=== PATIENT | female | born 1980 | race Caucasian/White ===

== ENCOUNTER 2019-07-11 07:20 | Emergency (ER) | payer BC ==
[2019-07-11 07:29] VITALS: BP 129/82
--- NOTE | 2019-07-11 07:44 | UC ---
Throat Pain/Nasal Erasto HPI - HPI Summary HPI Summary: 39-year-old woman comes in with a chief complaint of bilateral eye redness irritation and drainage. About 5 days ago she started with a severe sore throat and it spread to some rhinorrhea and chest congestion. Overnight she started with bilateral eye irritation and this morning had drainage. Using was compresses she was able to clean her eyes which improved. Still having eye drainage. Sore throat has improved but still hurts some to swallow. Minimal rhinorrhea minimal sputum has not seen any of either. No complaint of any shortness of breath. Has felt some pressure in the right ear. - History of Current Complaint Chief Complaint: UCEye Stated Complaint: BILATERAL EYE IRRITATION Time Seen by Provider: 07/11/19 07:31 Hx Last Menstrual Period: UID Pain Intensity: 4 - Allergies/Home Medications Allergies/Adverse Reactions: Allergies Allergy/AdvReac Type Severity Reaction Status Date / Time CATS Allergy SNEEZING,ITCHY Uncoded 07/11/19 07:29 EYES PMH/Surg Hx/FS Hx/Imm Hx Previously Healthy: Yes - Surgical History Surgical History: Yes Surgery Procedure, Year, and Place: APPENDECTOMY AGE 9,. 2010 DILATION AND CURETTAGE FOR MISSED AB, [facility]. 05/2013 RT LEG VEINS [facility] - Family History Known Family History: Positive: Non-Contributory - Social History Alcohol Use: Rare Alcohol Amount: 2-3 DRINKS/MONTH Substance Use Type: None Smoking Status (MU): Never Smoked Tobacco Have You Smoked in the Last Year: No Review of Systems All Other Systems Reviewed And Are Negative: Yes Constitutional: Positive: Other - see hpi Skin: Positive: Negative Eyes: Positive: Drainage, Eye Redness, Other - see hpi ENT: Positive: Sore Throat, Ear Ache, Nasal Discharge, Sinus Congestion Respiratory: Positive: Cough Cardiovascular: Positive: Negative Gastrointestinal: Positive: Negative Motor: Positive: Negative Neurovascular: Positive: Negative Musculoskeletal: Positive: Negative Neurological: Positive: Negative Psychological: Positive: Negative Is Patient Immunocompromised?: No Physical Exam Triage Information Reviewed: Yes Appearance: No Pain Distress, Well-Nourished, Ill-Appearing - mild Vital Signs: Initial Vital Signs Temp 98.3 F 07/11/19 07:27 Pulse 98 07/11/19 07:27 Resp 18 07/11/19 07:27 BP 129/82 07/11/19 07:27 Pulse Ox 100 07/11/19 07:27 Vital Signs Reviewed: Yes Eyes: Positive: Conjunctiva Inflamed - b/l, Discharge - b/l ENT: Positive: Pharyngeal erythema, Nasal congestion, TMs normal Neck: Positive: Supple Respiratory: Positive: Lungs clear, Normal breath sounds, No respiratory distress Cardiovascular: Positive: RRR Musculoskeletal: Positive: Strength Intact, ROM Intact Neurological: Positive: Alert, Muscle Tone Normal Psychological: Positive: Age Appropriate Behavior Skin Exam: Normal Throat Pain/Nasal Course/Dx - Differential Dx/Diagnosis Provider Diagnosis: Conjunctivitis, Upper respiratory infection Discharge ED - Sign-Out/Discharge Documenting (check all that apply): Patient Departure All imaging exams completed and their final reports reviewed: No Studies - Discharge Plan Condition: Stable Disposition: HOME Prescriptions: Tobramycin 0.3% OPHTH.SEVERINO* 1 drop BOTH EYES Q4H #1 btl Patient Education Materials: Conjunctivitis (ED), Upper Respiratory Infection ( ED) Referrals: Beatriz Johnson NP [Primary Care Provider] - Additional Instructions: FOLLOW UP WITH YOUR DOCTOR IF NOT COMPLETELY IMPROVED. GET REEVALUATED SOONER IF NOT IMPROVING OR WORSE OR ANY QUESTIONS OR CONCERNS. - Billing Disposition and Condition Condition: STABLE Disposition: Home
== END 2019-07-11 07:57 | disposition home or self-care (01) ==
LOC: UCCORT 07:20
DX: H10.9 Unspecified conjunctivitis (principal); J06.9 Acute upper respiratory infection, unspecified; Z91.09 Other allergy status, other than to drugs and biological substances
CPT/HCPCS: 87651; 99212; G0463

== ENCOUNTER → 2019-07-18 10:54 | Day surgery (SDC) | payer BC ==
[~2019-07-18 10:54] MED LIST: Atropine SYRINGE* 0.1 MG/ML 10 ML SYRINGE (1 MG) ONE; Heparin 2 UNITS/ML IVPREMIX* 2,000 ML IV ONE; Iohexol 350 (CONTRAST) 200 ML MDV IV ONE; LORazepam TAB(*) 1 MG ONE; LORazepam TAB(*) 1 MG PO ONE; Lidocaine 1% INJ* 10 MG/ML 30 ML SDV ONE; Midazolam* 1 MG/ML 5 ML VIAL (5 MG) ONE; NS 0.9% 1000 ML** 1,000 ML IV SCH; Polidocanol 1% 20 MG/2 ML AMP IV ONE; ceFAZolin 1 GM ADVAN(*) 1 GM in NS 0.9% 50 ML* 50 ML IVPB ONE; fentaNYL* 50 MCG/ML 2 ML VIAL (100 MCG VIAL) ONE
--- NOTE | 2019-07-18 17:01 | PN ---
Progress Note - Progress Note Date of Service: 07/18/19 SOAP: Subjective: No pain complaints. No shortness of breath or CP. Feels "fine". 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 Catheter cannulization of the accessory left ovarian vein was not successful. Plan: 1. DC to home. 2. Pain control with OTC NSAIDS PRN. 3. Follow up with IR will include RN call 07/21/19 and clinic follow up in 6 weeks.
== END | disposition home or self-care (01) ==
LOC: CHICATH 10:54
PROVIDERS: ATTEND Radiology Diagnostic Radiology
DX: I86.2 Pelvic varices (principal); N94.89 Other specified conditions associated with female genital organs and menstrual cycle; M79.89 Other specified soft tissue disorders; R22.41 Localized swelling, mass and lump, right lower limb
CPT/HCPCS: 37241; 75825; 76937; 99156; 99157; A9270-GY; C1769; C1887; C1894; J0461; J0690; J1644; J2250; J3010

== ENCOUNTER → 2019-10-30 10:41 | Day surgery (SDC) | payer BC ==
[~2019-10-30 10:41] MED LIST changes: -Atropine SYRINGE* 0.1 MG/ML 10 ML SYRINGE (1 MG) ONE; -LORazepam TAB(*) 1 MG ONE; -LORazepam TAB(*) 1 MG PO ONE; -NS 0.9% 1000 ML** 1,000 ML IV SCH; -ceFAZolin 1 GM ADVAN(*) 1 GM in NS 0.9% 50 ML* 50 ML IVPB ONE
[2019-10-30 15:44] VITALS: BP 106/52
== END | disposition home or self-care (01) ==
LOC: CHICATH 10:41
PROVIDERS: ATTEND Radiology Diagnostic Radiology
DX: N94.89 Other specified conditions associated with female genital organs and menstrual cycle (principal); I86.2 Pelvic varices; R22.41 Localized swelling, mass and lump, right lower limb; M79.605 Pain in left leg; R10.2 Pelvic and perineal pain; Z97.5 Presence of (intrauterine) contraceptive device
CPT/HCPCS: 36415; 37241; 75825; 76937; 84702; 99156; 99157; C1769; C1884; C1887; C1894; J1644; J2250; J3010